=== PATIENT | female | born 1975 | race Two or more races ===

== ENCOUNTER 2017-02-07 19:53 | Emergency (ER) | payer MEDICAID ==
[~2017-02-07] VITALS: Ht 160 cm; Wt 81.6 kg
[2017-02-07 20:03] VITALS: BP 123/76
== END 2017-02-07 20:42 | disposition home or self-care (01) ==
LOC: ER 20:01
DX: J01.10 Acute frontal sinusitis, unspecified (principal)
CPT/HCPCS: 99283; A4606; Z7610